=== PATIENT | male | born 1940 | race Caucasian/White ===

== ENCOUNTER 2016-08-19 23:05 | Inpatient (IN) | payer MEDICARE, BC ==
[~2016-08-19] VITALS: Ht 188 cm; Wt 111.0 kg
[~2016-08-19 23:05] MED LIST: AMLO10 PO; BACT400T PO; COBA1000 PO; COQ1200C; DULC5TAB PO; FERR325T PO; ISOS20TA PO; MILL5TAB PO; MULT1CHW70; SODI650T PO
[2016-08-19 23:11] VITALS: BP 197/96; PULSE 121; RESP 22; TEMP 99
--- NOTE | 2016-08-19 23:20 | PD ---
HPI Chief Complaint: Chest Pain Time Seen by Provider: 23:20 Travel History International Travel<30 days: No Contact w/Intl Traveler<30days: No Traveled to known affect area: No History of Present Illness HPI 76-year-old male came to the emergency room with history of fever, chills which were sudden onset this afternoon. Patient's rectal temperature in the ER was 102.5. He self catheterizes to empty his bladder and says that he's been on Keflex for UTI by his primary care. He's also been having some diarrhea due to the Keflex. Today he was working in the garden and when he came back he started having some shortness of breath. Patient is awake and answering questions appropriately. His is here with him who is giving additional history. [facility] Past Medical History Narrative Medical List of his past medical, surgical, social and family history is reviewed from the nursing note. 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, MITRAL VALVUE REGURGE) High Cholesterol: No Chest Pain: No Congestive Heart Failure: No COPD: Yes Diabetes: No Diminished Hearing: No Endocrine: No Genitourinary: Yes (self caths 4 QID) Hypertension: Yes Immune Disorder: No Musculoskeletal: Yes Neurologic: No Psychiatric: No Reproductive: No Respiratory: Yes (EMPHYSEMA, PULMONARY FIBROSIS,PULMONARY HTN) Immunizations Current: Yes Pneumonia: Yes Sleep Apnea: Yes Thyroid Disease: No Past Surgical History Abdominal Surgery: Yes (GALLBLADDER/ APPENDECTOMY) Appendectomy: Yes (2000) Cholecystectomy: Yes (2000) Endocrine Surgery: Yes (LYMPHNODE REMOVAL R/T CAT SCRATCH FEVER 1961) Genitourinary Surgery: Yes (VASECTOMY, TURP IN JANUARY 2013) Pacemaker: No Tonsillectomy: Yes Other Surgery: Yes (LYMPH NODES REMOVED-CAT SCRATCH FEVER) Social History Alcohol Use: Yes (OCC) Tobacco Use: No (QUIT 1995) Substance Use: No Allergies-Medications (Allergen,Severity, Reaction): Coded Allergies: Iodine (Verified Allergy, Severe, 08/24/16) SWELLING OF EYES AND FINGERS. Iohexol (OMNIPAQUE) (Verified Allergy, Unknown, 08/24/16) Comments List of his allergies reviewed from the nursing note. Reported Meds & Prescriptions Reported Meds & Active Scripts Active Reported Cranberry (Cranberry (Vaccinium Macrocarpon)) 500 Mg Cap 1 Tab PO DAILY Centrum Silver (Multiple Vitamins W/ Minerals) 1 Chw Chw 1 Tab PO DAILY Co Q 10 (Coenzyme Q10 (Ubidecarenone)) 10 Mg Cap 200 Mg PO DAILY Vitamin D (Cholecalciferol) 1,000 Unit Tab 1,000 Units PO DAILY Spironolactone 25 Mg Tab 25 Mg PO DAILY Sodium Bicarbonate 650 Mg Tab 1,300 Mg PO BIDPC Millipred (Prednisolone) 5 Mg Tab 30 Mg PO DAILY Isosorbide Mononitrate 20 Mg Tab 30 Mg PO DAILY Take 2 doses 7 hours apart. B-12 1000 (Cobalamine Combinations) 1,000-400 Mcg Subl 1 Tab PO DAILY Dulcolax DR (Bisacodyl) 5 Mg Tabdr 5 Mg PO DAILY PRN Norvasc (Amlodipine Besylate) 10 Mg Tab 10 Mg PO DAILY Narrative Medication List of his home medications reviewed from the nursing note. Review of Systems Except as stated in HPI: all other systems reviewed are Neg Physical Exam Narrative GENERAL: Awake, alert, moderate distress SKIN: Focused skin assessment warm/dry. HEAD: Atraumatic. Normocephalic. EYES: Pupils equal and round. No scleral icterus. No injection or drainage. ENT: No nasal bleeding or discharge. Mucous membranes pink and moist. NECK: Trachea midline. No JVD. CARDIOVASCULAR: Regular rate and rhythm. No murmur appreciated. RESPIRATORY: No accessory muscle use. Clear to auscultation. Breath sounds equal bilaterally. GASTROINTESTINAL: Abdomen soft, non-tender, nondistended. Hepatic and splenic margins not palpable. MUSCULOSKELETAL: No obvious deformities. No clubbing. No cyanosis. No edema. NEUROLOGICAL: Awake and alert. No obvious cranial nerve deficits. Motor grossly within normal limits. Normal speech. PSYCHIATRIC: Appropriate mood and affect; insight and judgment normal. Data Data Last Documented VS Orders Complete Blood Count With Diff (08/19/16 23:46) Comprehensive Metabolic Panel (08/19/16 23:46) Lactic Acid Sepsis Protocol (08/19/16 23:46) Urinalysis - C+S If Indicated (08/19/16 23:46) Blood Culture (08/19/16 23:46) Chest, Single Ap (08/19/16 23:46) Blood Glucose (08/19/16 23:46) Ecg Monitoring (08/19/16 23:46) Iv Access Insert/Monitor (08/19/16 23:46) Oximetry (08/19/16 23:46) Oxygen Administration (08/19/16 23:46) Vancomycin Inj (Vancomycin Inj) (08/19/16 23:46) Piperacil-Tazo 4.5 Gm Premix (Zosyn 4.5 (08/19/16 23:46) Sodium Chlor 0.9% 1000 Ml Inj (Ns 1000 M (08/19/16 23:46) Sodium Chlor 0.9% 1000 Ml Inj (Ns 1000 M (08/19/16 23:46) Sodium Chlor 0.9% 1000 Ml Inj (Ns 1000 M (08/19/16 23:46) Sodium Chlor 0.9% 1000 Ml Inj (Ns 1000 M (08/19/16 23:46) Acetaminophen (Tylenol) (08/20/16 00:00) Urine Culture (08/19/16 23:50) Admit Order (Ed Use Only) (08/20/16 00:49) Labs Laboratory Tests Test 08/19/16 08/19/16 23:45 23:50 Sodium Level 143 MEQ/L Potassium Level 3.7 MEQ/L Chloride Level 104 MEQ/L Carbon Dioxide Level 28.2 MEQ/L Anion Gap 11 MEQ/L Blood Urea Nitrogen 42 MG/DL Creatinine 1.77 MG/DL Estimat Glomerular Filtration 38 ML/MIN Rate Random Glucose 82 MG/DL Lactic Acid Level 1.4 mmol/L Calcium Level 9.3 MG/DL Total Bilirubin 0.9 MG/DL Aspartate Amino Transf 22 U/L (AST/SGOT) Alanine Aminotransferase 25 U/L (ALT/SGPT) Alkaline Phosphatase 48 U/L Total Protein 7.4 GM/DL Albumin 3.9 GM/DL White Blood Count 14.1 TH/MM3 Red Blood Count 4.55 MIL/MM3 Hemoglobin 13.2 GM/DL Hematocrit 38.8 % Mean Corpuscular Volume 85.4 FL Mean Corpuscular Hemoglobin 28.9 PG Mean Corpuscular Hemoglobin 33.9 % Concent Red Cell Distribution Width 15.4 % Platelet Count 108 TH/MM3 Mean Platelet Volume 10.6 FL Neutrophils (%) (Auto) 87.8 % Lymphocytes (%) (Auto) 6.1 % Monocytes (%) (Auto) 4.5 % Eosinophils (%) (Auto) 0.9 % Basophils (%) (Auto) 0.7 % Neutrophils # (Auto) 12.4 TH/MM3 Lymphocytes # (Auto) 0.9 TH/MM3 Monocytes # (Auto) 0.6 TH/MM3 Eosinophils # (Auto) 0.1 TH/MM3 Basophils # (Auto) 0.1 TH/MM3 CBC Comment AUTO DIFF Differential Total Cells 100 Counted Neutrophils % (Manual) 79 % Band Neutrophils % 5 % Lymphocytes % 5 % Monocytes % 8 % Neutrophils # (Manual) 12.3 TH/MM3 Metamyelocytes 3 % Differential Comment FINAL DIFF MANUAL Platelet Estimate LOW Platelet Morphology Comment NORMAL Urine Color LIGHT-YELLOW Urine Turbidity CLEAR Urine pH 5.5 Urine Specific [place] 1.014 Urine Protein TRACE mg/dL Urine Glucose (UA) NEG mg/dL Urine Ketones NEG mg/dL Urine Occult Blood TRACE Urine Nitrite NEG Urine Bilirubin NEG Urine Urobilinogen LESS THAN 2.0 MG/DL Urine Leukocyte Esterase SMALL Urine RBC 6 /hpf Urine WBC 14 /hpf Urine Squamous Epithelial <1 /hpf Cells Urine Bacteria RARE /hpf Urine Mucus FEW /lpf Microscopic Urinalysis Comment CATH-CULTURE IND MDM Medical Decision Making Medical Screen Exam Complete: Yes Emergency Medical Condition: Yes Medical Record Reviewed: Yes Interpretation(s) Twelve-lead EKG was reviewed by me. Normal sinus rhythm, normal axis, nonspecific ST-T wave changes, tachycardia. Heart rate of 114 bpm. Differential Diagnosis UTI, pneumonia, sepsis Narrative Course 12:40 AM patient was started on sepsis protocol along with fluid and broad- spectrum IV antibiotics. Test results of back and shows leukocytosis with left shift. UA is positive for infection. Patient will require admission. Awaiting for the hospitalist to call back. Critical Care Narrative Aggregate critical care time was 30 minutes. Time to perform other separately billable procedures was not included in the critical care time. My time did not include minutes spent treating any other patients simultaneously or on activities that did not directly contribute to the patient's treatment. The services I provided to this patient were to treat and/or prevent clinically significant deterioration that could result in: Sepsis, sepsis protocol I provided critical care services requiring my management, as noted below: Chart data review, documentation time, medication orders and management, vital sign assessments/reviewing monitor data, ordering and reviewing lab tests, ordering and interpreting/reviewing x-rays and diagnostic studies, care of the patient and discussion of the patient with the admitting physicians. Procedures EKG Prior to Arrival: No Sepsis Criteria SIRS Criteria (2 or more): Temp > 100.9 or < 96.8, Heart rate over 90, WBC > 21957, < 4000 or > 10% bands Sepsis Criteria (SIRS+source): Infect source susp/known Diagnosis Primary Impression: Sepsis Qualified Code: A41.9 - Sepsis, due to unspecified organism Additional Impressions: UTI (urinary tract infection) Qualified Code: N39.0 - Urinary tract infection without hematuria, site unspecified Renal insufficiency Failure of outpatient treatment Admitting Information Admitting Physician Requests: Admit Scripts Ciprofloxacin (Cipro)250 Mg Zel563 Mg PO BID #24 TAB Ref 0 Prov:Shira Jones 08/22/16 Zakia Irving MD August 19, 2016 23:20
[2016-08-19] MEDS ORDERED: VITA100064 PO (23:25)
[2016-08-19] MEDS ORDERED: CENTCHW3 PO (23:25)
[2016-08-19] MEDS ORDERED: SPIR25TA PO (23:25)
[2016-08-19] MEDS ORDERED: CO Q10CA PO (23:25)
[2016-08-19] MEDS ORDERED: CRAN500C2 PO (23:25)
[2016-08-19] MEDS ORDERED: CEPH-459 PO (23:25)
[2016-08-19 23:30] VITALS: TEMP 102.4
[2016-08-19] MEDS ORDERED: VANCOMYCIN INJ 1,000 MG in SODIUM CHLOR 0.9% 250 ML INJ 250 ML IV STA (23:46)
[2016-08-19] MEDS ORDERED: PIPERACIL-TAZO 4.5 GM PREMIX 100 ML IV STA (23:46)
[2016-08-19] MEDS ORDERED: SODIUM CHLOR 0.9% 1000 ML INJ 300 ML IV ONE (23:46)
[2016-08-19] MEDS ORDERED: SODIUM CHLOR 0.9% 1000 ML INJ 1,000 ML IV ONE ×3 (23:46)
[2016-08-20] VITALS (7 sets, daily range): BP systolic 118–205; BP diastolic 65–98; PULSE 74–117; RESP 18–20; TEMP 98–99.1; O2SAT 94–96
[2016-08-20] MEDS ORDERED: ACETAMINOPHEN 325 MG TAB PO ONE
[2016-08-20 00:15] LABS: BACTERIA, URINE RARE /hpf; BLOOD, URINE TRACE (NEG); GLUCOSE,URINE NEG (NEG); KETONE, URINE NEG (NEG); MUCUS URINE FEW /lpf (OCC); NITRITE,URINE NEG (NEG); PH, URINE 5.5 (5.0-8.5); SQUAMOUS EPITHELIAL CELL URINE <1 /hpf (0-5); URINE COLOR LIGHT-YELLOW (YELLW/STRAW)
[2016-08-20 00:21] LABS: ALT (GPT) 25 U/L (12-78); ANION GAP 11 MEQ/L (5-15); AST (GOT) 22 U/L (15-37); AUTOMATED NEUTROPHIL # 12.4 TH/MM3 (1.8-7.7); BASOPHIL # 0.1 TH/MM3 (0-0.2); BASOPHIL % 0.7 % (0.0-2.0); BICARBONATE 28.2 MEQ/L (21.0-32.0); BLOOD UREA NITROGEN 42 MG/DL (7-18); CHLORIDE 104 MEQ/L (98-107); EOSINOPHIL # 0.1 TH/MM3 (0-0.4); EOSINOPHIL % 0.9 % (0.0-4.0); GLOMERULAR FILTRATION RATE 38 ML/MIN (>89); HEMATOCRIT 38.8 % (39.0-51.0); LYMPH % 6.1 % (9.0-44.0); LYMPHOCYTE # 0.9 TH/MM3 (1.0-4.8); MEAN CELL VOLUME 85.4 FL (80.0-100.0); MEAN CORPUSCULAR HEMOGLOBIN 28.9 PG (27.0-34.0); MEAN CORPUSCULAR HGB CONC 33.9 % (32.0-36.0); MONO % 4.5 % (0.0-8.0); NEUT % 87.8 % (16.0-70.0); PLATELET COUNT 108 TH/MM3 (150-450); POTASSIUM 3.7 MEQ/L (3.5-5.1); RED BLOOD COUNT 4.55 MIL/MM3 (4.50-5.90); RED CELL DISTRIBUTION WIDTH 15.4 % (11.6-17.2); SODIUM (NA) 143 MEQ/L (136-145); WHITE BLOOD COUNT 14.1 TH/MM3 (4.0-11.0)
[2016-08-20 00:23] LABS: ALKALINE PHOSPHATASE 48 U/L (45-117); HEMO FLAGS AUTO DIFF; TOTAL BILIRUBIN ADULT 0.9 MG/DL (0.2-1.0)
[2016-08-20 00:33] LABS: COMMENT (UR) CATH-CULTURE IND; CULTURE IF INDICATED CATH CULTURE IND
--- NOTE | 2016-08-20 00:40 | RADRPT ---
EXAM DATE/TIME: 08/20/2016 00:25 [facility] COMPARISON: CHEST SINGLE AP, June 27, 2012, 11:34. INDICATIONS : Fever. MEDICAL HISTORY : Chronic obstructive pulmonary disease. Ventricular fibrosis CKD BPH SURGICAL HISTORY : Cholecystectomy. Appendectomy. TURP ENCOUNTER: Initial ACUITY: 1 day PAIN SCORE: 0/10 LOCATION: Bilateral chest FINDINGS: A single view of the chest demonstrates cardiomegaly. Left sided lung fibrotic changes similar to Jun. No new consolidation. Mild right basilar fibrosis as well. No pneumothorax. CONCLUSION: 1. Relatively stable appearance of basilar lung fibrotic changes since 2012. Cardiomegaly. No acute f indings. Monty Wang MD on August 20, 2016 at 0:34 Board Certified Radiologist. This report was verified electronically.
[2016-08-20] MEDS ORDERED: SODIUM CHLOR 0.9% 1000 ML INJ 1,000 ML IV SCH (00:49)
[2016-08-20 00:56] LABS: BANDS 5 % (0-6); METAMYELOCYTES 3 % (0-1); NEUTROPHIL # MANUAL DIFF 12.3 TH/MM3 (1.8-7.7); POLYS (SEG NEUTROPHILS) 79 % (16-70); SCAN/DIFF FINAL DIFF MANUAL; WBC DIFF SAMPLE 100
[2016-08-20 00:57] LABS: PLATELET ESTIMATE SMEAR LOW (NORMAL); PLATELET MORPHOLOGY NORMAL (NORMAL)
[2016-08-20] MEDS ORDERED: SODIUM CHLORIDE 0.9% FLUSH 10 ML FLUSH IV FLUSH PRN (01:00)
[2016-08-20] MEDS ORDERED: MORPHINE SULFATE 4 MG/ML INJ IV PRN (01:00)
[2016-08-20] MEDS ORDERED: SENNOSIDES 8.6 MG TAB PO PRN (01:00)
[2016-08-20] MEDS ORDERED: BISACODYL 10 MG SUPP RECTAL PRN (01:00)
[2016-08-20] MEDS ORDERED: ONDANSETRON HCL 4 MG/2 ML VIAL IVP PRN (01:00)
[2016-08-20] MEDS ORDERED: MAGNESIUM HYDROXIDE SUSP 30 ML CUP PO PRN (01:00)
[2016-08-20] MEDS ORDERED: Vancomycin Consult Pharmacy 1 EA OTHER SCH (01:00)
[2016-08-20] MEDS ORDERED: LACTULOSE SYRUP 20 GM/30 ML CUP PO PRN (01:00)
[2016-08-20] MEDS ORDERED: VANCOMYCIN 1,000 MG/NS 250 ML IV SCH ×2 (02:00)
--- NOTE | 2016-08-20 03:12 | HHI.HP ---
[facility] Physician Loc Vidal MD Admission Diagnosis sepsis, UTI, outpatient treatment failure Diagnoses: (1) Sepsis Diagnosis: Principal (2) UTI (urinary tract infection) Diagnosis: Principal (3) Failure of outpatient treatment Diagnosis: Principal (4) COPD (chronic obstructive pulmonary disease) Diagnosis: Principal (5) Renal insufficiency Diagnosis: Principal (6) Thrombocytopenia Diagnosis: Principal Travel History International Travel<30 Days: No Contact w/Intl Traveler <30 Da: No Traveled to Known Affected Are: No History of Present Illness This is a 76-year-old male with a PMH of HTN, COPD, Pulmonary Fibrosis on Steroid Taper, CKD and Recurrent UTI who presented to the ER w/ complaints of fever, chills and generalized weakness starting earlier tonight. Recently diagnosed w/ UTI and started on Keflex PO 2 days ago, reports compliance w/ antibiotic regimen. Today, had acute onset of fever, chills. On arrival, BP 197/96, HR 121, O2 sat 95% on RA, Temp 102.4 rectal. WBC 14.1. Platelets 108, previously 85 on 01/06/16. Creatinine 1.77, previously 1.68 on 01/04/16. UA positive for UTI. CXR was stable fibrosis, no acute changes. S/p Blood/Urine Cultures, Vanc/Zosyn in ER. Review of Systems Except as stated in HPI: all other systems reviewed are Neg ROS: 14 point review of systems otherwise negative. Past Family Social History Past Medical History PMH: HTN, COPD, Pulmonary Fibrosis on Steroid Taper, CKD and Recurrent UTI Past Surgical History PAST SURGICAL HISTORY: Cholecystectomy, Appendectomy, Vasectomy, TURP, Tonsillectomy Allergies: Coded Allergies: Iodine (Verified Allergy, Severe, 02/24/16) SWELLING OF EYES AND FINGERS. Iohexol (OMNIPAQUE) (Verified Allergy, Unknown, 02/24/16) Family History PAST FAMILY HISTORY: Reviewed. No h/o DM or CAD Social History PAST SOCIAL HISTORY: Occasional alcohol. Negative for tobacco or drugs. Physical Exam Vital Signs Vital Signs Date Time Temp Pulse Resp B/P Pulse Ox O2 Delivery O2 Flow Rate FiO2 08/20/16 01:32 104 20 145/72 96 Room Air 08/19/16 23:30 102.4 08/19/16 23:15 95 Room Air 08/19/16 23:11 99.0 121 22 197/96 Physical Exam PE: GENERAL: Pleasant elderly male in no acute distress. HEENT: PERRLA, EOMI. No scleral icterus or conjunctival pallor. No lid lag or facial droop. CARDIOVASCULAR: Regular rate and rhythm. No obvious murmurs to auscultation. No chest tenderness to palpation. RESPIRATORY: No obvious rhonchi or wheezing. Clear to auscultation. Breath sounds equal bilaterally. GASTROINTESTINAL: Abdomen soft, non-tender, nondistended. BS normal. MUSCULOSKELETAL: Extremities without clubbing, cyanosis, or edema. No obvious deformities. NEUROLOGICAL: Awake, alert and oriented x4. No focal neurologic deficits. Moving both upper and lower extremities spontaneously. Laboratory Laboratory Tests Test 08/19/16 08/19/16 23:45 23:50 White Blood Count 14.1 Red Blood Count 4.55 Hemoglobin 13.2 Hematocrit 38.8 Mean Corpuscular Volume 85.4 Mean Corpuscular Hemoglobin 28.9 Mean Corpuscular Hemoglobin 33.9 Concent Red Cell Distribution Width 15.4 Platelet Count 108 Mean Platelet Volume 10.6 Neutrophils (%) (Auto) 87.8 Lymphocytes (%) (Auto) 6.1 Monocytes (%) (Auto) 4.5 Eosinophils (%) (Auto) 0.9 Basophils (%) (Auto) 0.7 Neutrophils # (Auto) 12.4 Lymphocytes # (Auto) 0.9 Monocytes # (Auto) 0.6 Eosinophils # (Auto) 0.1 Basophils # (Auto) 0.1 CBC Comment AUTO DIFF Differential Total Cells 100 Counted Neutrophils % (Manual) 79 Band Neutrophils % 5 Lymphocytes % 5 Monocytes % 8 Neutrophils # (Manual) 12.3 Metamyelocytes 3 Differential Comment FINAL DIFF MANUAL Platelet Estimate LOW Platelet Morphology Comment NORMAL Sodium Level 143 Potassium Level 3.7 Chloride Level 104 Carbon Dioxide Level 28.2 Anion Gap 11 Blood Urea Nitrogen 42 Creatinine 1.77 Estimat Glomerular Filtration 38 Rate Random Glucose 82 Lactic Acid Level 1.4 Calcium Level 9.3 Total Bilirubin 0.9 Aspartate Amino Transf 22 (AST/SGOT) Alanine Aminotransferase 25 (ALT/SGPT) Alkaline Phosphatase 48 Total Protein 7.4 Albumin 3.9 Urine Color LIGHT-YELLOW Urine Turbidity CLEAR Urine pH 5.5 Urine Specific [place] 1.014 Urine Protein TRACE Urine Glucose (UA) NEG Urine Ketones NEG Urine Occult Blood TRACE Urine Nitrite NEG Urine Bilirubin NEG Urine Urobilinogen LESS THAN 2.0 Urine Leukocyte Esterase SMALL Urine RBC 6 Urine WBC 14 Urine Squamous Epithelial <1 Cells Urine Bacteria RARE Urine Mucus FEW Microscopic Urinalysis Comment CATH-CULTURE IND Date/Time Procedure Status Source Growth 08/19/16 23:50 Urine Culture Received Urine Catheterized Urine Pending 08/19/16 23:50 Aerobic Blood Culture Received Blood Peripheral Pending 08/19/16 23:50 Anaerobic Blood Culture Received Blood Peripheral Pending Result Diagram: 08/19/16 2345 08/19/165 Assessment and Plan Problem List: (1) Sepsis ICD Code: A41.9 Status: Acute (2) UTI (urinary tract infection) ICD Code: N39.0 Status: Acute (3) Failure of outpatient treatment ICD Code: Z78.9 Status: Acute (4) Renal insufficiency ICD Code: N28.9 Status: Acute (5) COPD (chronic obstructive pulmonary disease) ICD Code: J44.9 Status: Acute (6) Thrombocytopenia ICD Code: D69.6 Status: Acute Assessment and Plan A/P: 1. Sepsis: Temp 102.4, HR 120's, WBC 14, Source-UTI. S/p Blood/Urine Cultures , Vanc/Zosyn in ER, will follow up cultures, continue w/ IV Abx, IVF for hydration. 2. UTI: U/a w/ UTI, recently diagnosed w/ UTI as outpatient, on Keflex x2 days by PCP, failed outpatient therapy. Continue w/ IV Abx as above, follow up cultures. 3. Renal Insufficiency: Acute on Chronic. Creatinine 1.77, previously 1.68 on 01/06/16. IVF for hydration, repeat labs in am. Caution w/ home diuretics. 4. COPD: Chronic Respiratory Failure and Pulmonary Fibrosis, currently on steroid taper. Stable. Will resume home Prednisone therapy. 5. Thrombocytopenia: Chronic. Platelets 108, previously 85 on 01/06/16. No active bleeding at this time. Will monitor. Repeat labs in am. 6. DVT Prophylaxis: SCD/Teds. 7. Social work for d/c planning as needed. 8. Case discussed w/ ER physician at length Physician Certification 2 Midnight Certification Type: Admission for Inpatient Services Order for Inpatient Services The services are ordered in accordance with Medicare regulations or non- Medicare payer requirements, as applicable. In the case of services not specified as inpatient-only, they are appropriately provided as inpatient services in accordance with the 2-midnight benchmark. Estimated LOS (days): 2 days is the estimated time the patient will need to remain in the hospital, assuming treatment plan goals are met and no additional complications. Post-Hospital Plan: Not yet determined Problem Qualifiers (1) Sepsis: Qualified Code: A41.9 - Sepsis, due to unspecified organism (2) UTI (urinary tract infection): Qualified Code: N39.0 - Urinary tract infection without hematuria, site unspecified Beatriz Funes MD August 20, 2016 03:12
[2016-08-20] MEDS: ISOSORBIDE MONONITRATE 20 MG TAB PO SCH (06:40)
[2016-08-20] MEDS: SPIRONOLACTONE 25 MG TAB PO SCH (08:23)
[2016-08-20] MEDS: MULTIVITAMINS/MINERALS THERAPEUTIC TAB PO SCH (08:23)
[2016-08-20] MEDS: DOCUSATE SODIUM 50 MG/SENNA 8.6 MG TAB PO SCH ×2 (08:23→21:00)
[2016-08-20] MEDS: prednisoLONE 15 MG ODT TAB PO SCH (08:23)
[2016-08-20] MEDS: SODIUM BICARBONATE 650 MG TAB PO SCH ×2 (08:23→18:09)
[2016-08-20] MEDS: ACETAMINOPHEN 325 MG TAB PO PRN ×2 (08:23→14:17)
[2016-08-20] MEDS: SODIUM CHLORIDE 0.9% FLUSH 10 ML FLUSH IV FLUSH SCH ×2 (08:24→21:00)
--- NOTE | 2016-08-20 12:09 | HHI.PR ---
Subjective Remarks MAXIMUM TEMPERATURE on admission 102.4. Patient remains tachycardic to 117. Hypertensive to 205/98. Patient states he feels well this morning. He is urinating in his usual fashion (voiding and self catheterizing). Denies hematuria or pain with urination. Denies nausea/vomiting/diarrhea. Denies shortness of breath. Objective Vitals Vital Signs Date Time Temp Pulse Resp B/P Pulse Ox O2 Delivery O2 Flow Rate FiO2 08/20/16 08:00 99.1 101 20 205/98 94 08/20/16 04:00 117 08/20/16 03:42 Room Air 08/20/16 03:30 98.0 92 20 144/75 95 08/20/16 01:32 104 20 145/72 96 Room Air 08/19/16 23:30 102.4 08/19/16 23:15 95 Room Air 08/19/16 23:11 99.0 121 22 197/96 Result Diagram: 08/19/16 2345 08/19/16 2345 Objective Remarks GENERAL: Pleasant elderly male in no acute distress. HEENT: PERRLA, EOMI. No scleral icterus or conjunctival pallor. No lid lag or facial droop. CARDIOVASCULAR: Regular rate and rhythm. No obvious murmurs to auscultation. No chest tenderness to palpation. RESPIRATORY: No obvious rhonchi or wheezing. Clear to auscultation. Breath sounds equal bilaterally. GASTROINTESTINAL: Abdomen soft, non-tender, nondistended. BS normal. MUSCULOSKELETAL: Extremities without clubbing, cyanosis, or edema. No obvious deformities. NEUROLOGICAL: Awake, alert and oriented x4. No focal neurologic deficits. Moving both upper and lower extremities spontaneously. A/P Problem List: (1) Sepsis ICD Code: A41.9 Status: Acute (2) UTI (urinary tract infection) ICD Code: N39.0 Status: Acute (3) Failure of outpatient treatment ICD Code: Z78.9 Status: Acute (4) Renal insufficiency ICD Code: N28.9 Status: Acute (5) COPD (chronic obstructive pulmonary disease) ICD Code: J44.9 Status: Acute (6) Thrombocytopenia ICD Code: D69.6 Status: Acute Assessment and Plan 76-year-old male with past medical history significant for stage IV chronic kidney disease, hypertension, urinary retention, COPD and pulmonary fibrosis presents with sepsis from UTI. Patient took 4 days of Keflex and failed outpatient therapy. On admission he was febrile to 102.4 and had a leukocytosis of 14.1. 1. Sepsis Likely secondary to urinary tract infection Urine culture pending Continue cefepime and vancomycin as patient failed Keflex 4 days Patient tolerating by mouth, DC IV fluids Blood cultures no growth 1 day Follow cultures, adjust antibiotics 2. UTI Likely secondary to patient's self catheterizing at home Failed outpatient therapy as above Antibiotics as above 3. Stage IV chronic kidney disease Creatinine 1.77, previously 1.68 on 01/06/16 Repeat labs in the a.m. 4. COPD and pulmonary fibrosis Continue home prednisone therapy 5. Thrombocytopenia Platelets 108, previously 85 on 01/06/16. No acute bleeding at this time. Continue to monitor. 6. DVT prophylaxis SCDs/teds Pharmacologic anticoagulation not indicated given thrombocytopenia 7. Discharge planning Pending urine sensitivities and continued negative blood cultures Problem Qualifiers (1) Sepsis: Qualified Code: A41.9 - Sepsis, due to unspecified organism (2) UTI (urinary tract infection): Qualified Code: N39.0 - Urinary tract infection without hematuria, site unspecified Ramona Cervantes MD R3 August 20, 2016 12:09
--- NOTE | 2016-08-20 14:48 | EKG ---
Date Performed: 08/19/2016 Time Performed: 23:22:07 PTAGE: 76 years EKG: SINUS TACHYCARDIA MINIMAL VOLTAGE CRITERIA FOR LVH, CONSIDER NORMAL VARIANT ABNORMAL RHYTHM ECG PREVIOUS TRACING 01/05/2016 17.43.59 Compared to previous tracing, QRS voltage is slightly lar gladis in this tracing, otherwise no significant change. DOCTOR: Michael Randolph Interpretating Date/Time 08/20/2016 14:47:11
[2016-08-20] MEDS: VANCOMYCIN INJ 1,600 MG in SODIUM CHLORID 0.9% 500 ML INJ 500 ML IV SCH (21:15)
--- NOTE | 2016-08-20 23:03 | RADRPT ---
EXAM DATE/TIME: 08/20/2016 22:40 [facility] COMPARISON: No previous studies available for comparison. INDICATIONS : Distention. MEDICAL HISTORY : Chronic obstructive pulmonary disease. Ventricular fibrosis. SURGICAL HISTORY : Cholecystectomy. Appendectomy. ENCOUNTER: Subsequent ACUITY: 1 week PAIN SCORE: 0/10 LOCATION: Bilateral abdomen FINDINGS: Supine view of the abdomen was performed. The abdominal bowel gas pattern is normal. No abnormal ma sses, calcifications, or organomegaly is seen. Degenerative changes are noted within the lumbar spine . CONCLUSION: 1. No evidence of bowel obstruction or ileus. 2. Degenerative changes within the lumbar spine. Vlad Dozier MD on August 20, 2016 at 23:00 Board Certified Radiologist. This report was verified electronically.
[2016-08-20] MEDS: SIMETHICONE 125 MG CHEWABLE TAB PO PRN (23:10)
[2016-08-20] MEDS: ACETAMINOPHEN/HYDROcodone 325 MG/5 MG TAB PO PRN (23:13)
[2016-08-21] VITALS (9 sets, daily range): BP systolic 134–166; BP diastolic 80–90; PULSE 55–82; RESP 16–21; TEMP 97.3–97.9; O2SAT 92–97
[2016-08-21] MEDS ORDERED: ENALAPRILAT 1.25 MG/ML VIAL IV PUSH PRN (05:15)
[2016-08-21] MEDS ORDERED: CEFEPIME INJ 1,000 MG in SODIUM CHLORIDE 0.9% INJ 100 ML IV SCH (06:00)
[2016-08-21] MEDS: ISOSORBIDE MONONITRATE 20 MG TAB PO SCH (06:20)
[2016-08-21 08:17] LABS: AUTOMATED NEUTROPHIL # 3.4 TH/MM3 (1.8-7.7); BASOPHIL % 0.1 % (0.0-2.0); EOSINOPHIL # 0.1 TH/MM3 (0-0.4); EOSINOPHIL % 1.1 % (0.0-4.0); LYMPH % 16.2 % (9.0-44.0); MEAN CELL VOLUME 85.6 FL (80.0-100.0); MEAN CORPUSCULAR HGB CONC 32.8 % (32.0-36.0); MONO % 27.3 % (0.0-8.0); NEUT % 55.3 % (16.0-70.0); PLATELET COUNT 64 TH/MM3 (150-450); RED BLOOD COUNT 4.09 MIL/MM3 (4.50-5.90); RED CELL DISTRIBUTION WIDTH 15.3 % (11.6-17.2); WHITE BLOOD COUNT 6.2 TH/MM3 (4.0-11.0)
[2016-08-21 08:22] LABS: HEMO FLAGS AUTO DIFF
[2016-08-21 08:37] LABS: ALKALINE PHOSPHATASE 36 U/L (45-117); ALT (GPT) 23 U/L (12-78); ANION GAP 8 MEQ/L (5-15); AST (GOT) 17 U/L (15-37); BICARBONATE 23.9 MEQ/L (21.0-32.0); BLOOD UREA NITROGEN 32 MG/DL (7-18); CHLORIDE 107 MEQ/L (98-107); GLOMERULAR FILTRATION RATE 46 ML/MIN (>89); POTASSIUM 3.5 MEQ/L (3.5-5.1); SODIUM (NA) 139 MEQ/L (136-145); TOTAL BILIRUBIN ADULT 0.8 MG/DL (0.2-1.0)
[2016-08-21] MEDS: DOCUSATE SODIUM 50 MG/SENNA 8.6 MG TAB PO SCH ×2 (09:00→20:13)
[2016-08-21] MEDS: SODIUM BICARBONATE 650 MG TAB PO SCH ×2 (09:25→17:15)
[2016-08-21] MEDS: SPIRONOLACTONE 25 MG TAB PO SCH (09:25)
[2016-08-21] MEDS: prednisoLONE 15 MG ODT TAB PO SCH (09:25)
[2016-08-21] MEDS: SIMETHICONE 125 MG CHEWABLE TAB PO PRN (09:25)
[2016-08-21] MEDS: MULTIVITAMINS/MINERALS THERAPEUTIC TAB PO SCH (09:25)
[2016-08-21] MEDS: SODIUM CHLORIDE 0.9% FLUSH 10 ML FLUSH IV FLUSH SCH ×2 (09:30→20:13)
[2016-08-21 09:48] LABS: BANDS 12 % (0-6); METAMYELOCYTES 1 % (0-1); MYELOCYTES 10 % (0-0); NEUTROPHIL # MANUAL DIFF 3.9 TH/MM3 (1.8-7.7); POLYS (SEG NEUTROPHILS) 40 % (16-70); WBC DIFF SAMPLE 100
[2016-08-21 09:49] LABS: PLATELET ESTIMATE SMEAR LOW (NORMAL); PLATELET MORPHOLOGY NORMAL (NORMAL); SCAN/DIFF FINAL DIFF MANUAL
--- NOTE | 2016-08-21 11:39 | HHI.PR ---
Subjective Remarks Follow up UTI. Patient states he has been urinating, no straight cath as of yet. He does straight cath at home, and is bringing supplies. He denies any dysuria, fever or chills. Objective Vitals Vital Signs Date Time Temp Pulse Resp B/P Pulse Ox O2 Delivery O2 Flow Rate FiO2 08/21/16 08:00 97.8 80 16 164/82 93 08/21/16 06:28 140/80 08/21/16 04:52 97.9 55 18 166/86 93 08/21/16 04:00 97.9 55 18 166/86 93 08/21/16 00:00 97.8 71 18 150/80 92 08/20/16 20:00 74 08/20/16 20:00 98.3 78 18 145/72 94 08/20/16 19:00 Room Air 08/20/16 16:00 98.8 85 20 147/70 94 08/20/16 12:00 99.0 81 20 118/65 94 I/O 08/20/16 08/20/16 08/20/16 08/21/16 08/21/16 08/21/16 07:00 15:00 23:00 07:00 15:00 23:00 Intake Total 960 ml 240 ml 240 ml Output Total 200 ml 300 ml Balance 960 ml 40 ml -60 ml Intake Oral 960 ml 240 ml 240 ml Output Urine Total 200 ml 300 ml # Voids 2 12 # Bowel Movements 0 1 0 Result Diagram: 08/21/1672308/21/16 0724 Objective Remarks GENERAL: Pleasant elderly male in no acute distress. HEENT: PERRLA, EOMI. No scleral icterus or conjunctival pallor. CARDIOVASCULAR: Regular rate and rhythm. Mitral murmer with radiation to axilla. RESPIRATORY: No obvious rhonchi or wheezing. Clear to auscultation. Breath sounds equal bilaterally. GASTROINTESTINAL: Abdomen soft, non-tender, nondistended. BS normal. MUSCULOSKELETAL: Extremities without clubbing, cyanosis, or edema. No obvious deformities. NEUROLOGICAL: Awake, alert and oriented x4. No focal neurologic deficits. Moving both upper and lower extremities spontaneously. Medications and IVs Current Medications Medications (Trade) Dose Ordered Sig/Lida Route Start Time Stop Time Status Last Admin (Vancomycin Consult Pharmacy) 0 ml @ 0 mls/hr UNSCH OTHER 08/20/16 01:00 (NS Flush) 2 ml UNSCH PRN IV FLUSH 08/20/16 01:00 (NS Flush) 2 ml BID IV FLUSH 08/20/16 09:00 08/21/16 09:30 (Zofran Inj) 4 mg Q6H PRN IVP 08/20/16 01:00 (Tylenol) 650 mg Q6H PRN PO 08/20/16 01:00 08/20/16 14:17 ([place] 5-325 Mg) 1 tab Q4H PRN PO 08/20/16 01:00 08/20/16 23:13 (Morphine Inj) 2 mg Q3H PRN IV 08/20/16 01:00 (Veronica-Colace) 1 tab BID PO 08/20/16 09:00 08/20/16 08:23 (Milk Of Magnesia Liq) 30 ml Q12H PRN PO 08/20/16 01:00 (Senokot) 17.2 mg Q12H PRN PO 08/20/16 01:00 (Dulcolax Supp) 10 mg DAILY PRN RECTAL 08/20/16 01:00 (Lactulose Liq) 30 ml DAILY PRN PO 08/20/16 01:00 (Norvasc) 10 mg DAILY PO 08/20/16 09:00 08/21/16 09:25 (Ismo) 30 mg DAILY@07 PO 08/20/16 07:00 08/21/16 06:20 (Sodium Bicarbonate) 1,300 mg BIDPC PO 08/20/16 09:00 08/21/16 09:25 (Aldactone) 25 mg DAILY PO 08/20/16 09:00 08/21/16 09:25 (Theragran M Tab) 1 tab DAILY PO 08/20/16 09:00 08/21/16 09:25 Prednisolone 30 mg 30 mg DAILY PO 08/20/16 09:00 08/21/16 09:25 (Vancomycin Inj/ NS 500 ml Inj) 516 ml @ 250 mls/hr Q24H IV 08/20/16 21:00 08/20/16 21:15 Miscellaneous Information SPECIFIC LAB TO BE DRAWN:VANCOMY... ONCE ONCE .XX 08/22/16 20:45 08/22/16 20:46 (Phazyme Chew) 125 mg Q8HR PRN PO 08/20/16 22:45 08/21/16 09:25 Enalaprilat 1.25 mg 1.25 mg Q6H PRN IV PUSH 08/21/16 05:15 (Maxipime Inj/NS Inj) 100 ml @ 200 mls/hr Q12H IV 08/21/16 18:00 A/P Problem List: (1) Sepsis ICD Code: A41.9 Status: Acute (2) UTI (urinary tract infection) ICD Code: N39.0 Status: Acute (3) Failure of outpatient treatment ICD Code: Z78.9 Status: Acute (4) Renal insufficiency ICD Code: N28.9 Status: Acute (5) COPD (chronic obstructive pulmonary disease) ICD Code: J44.9 Status: Acute (6) Thrombocytopenia ICD Code: D69.6 Status: Acute Assessment and Plan 76-year-old male with past medical history significant for stage IV chronic kidney disease, hypertension, urinary retention, COPD and pulmonary fibrosis presents with sepsis from UTI. Patient took 4 days of Keflex and failed outpatient therapy. On admission he was febrile to 102.4 and had a leukocytosis of 14.1. Sepsis, Likely secondary to urinary tract infection with Ecoli Urine culture growing Gram negative rods Continue cefepime and vancomycin as patient failed Keflex 4 days Blood cultures no growth 2 days Follow cultures, adjust antibiotics UTI, r/t Ecoli, Likely secondary to patient's self catheterizing at home Failed outpatient therapy as above Antibiotics as above -Record post residual void with straight cath Acute kidney injury on chronic Stage IV kidney disease Creatinine 1.77, previously 1.68 on 01/06/16 Improving creatine 1.49, cont to trend COPD and pulmonary fibrosis Continue home prednisone therapy Thrombocytopenia, acute on chronic, likely dilutional Platelets 108, previously 85 on 01/06/16. 08/21 decreased to 64, pt complains of blood not clotting fast enough. Recheck tonight and in AM, if continues to drop will consult hematology DVT prophylaxis SCDs/teds Pharmacologic anticoagulation not indicated given thrombocytopenia Discussed with Dr. Mai Attending Statement The exam, history, and the medical decision-making described in the above note were completed with the assistance of the mid-level provider. I reviewed and agree with the findings presented. I attest that I had a [id number] encounter with the patient on the same day, and personally performed and documented my assessment and findings in the medical record.patient seen and examined with APRYL. Patient straight catheters at home. Continue straight catheters here to avoid infection risk of indwelling catheter. Continue antibiotics to treat UTI and await sensitivities. Problem Qualifiers (1) Sepsis: Qualified Code: A41.9 - Sepsis, due to unspecified organism (2) UTI (urinary tract infection): Qualified Code: N39.0 - Urinary tract infection without hematuria, site unspecified Shira Jones August 21, 2016 11:39 Nabor Mai MD Aug 24, 2016 08:01
[2016-08-21] MEDS: CEFEPIME INJ 1,000 MG in SODIUM CHLORIDE 0.9% INJ 100 ML IV SCH (17:15)
[2016-08-21] MEDS: VANCOMYCIN INJ 1,600 MG in SODIUM CHLORID 0.9% 500 ML INJ 500 ML IV SCH (20:13)
[2016-08-21] MEDS: ACETAMINOPHEN/HYDROcodone 325 MG/5 MG TAB PO PRN (23:34)
[2016-08-22] VITALS: BP 162/80; PULSE 65; RESP 20; TEMP 97.9; O2SAT 95
[2016-08-22 04:00] VITALS: BP 175/84; PULSE 76; RESP 19; TEMP 97.9; O2SAT 96
[2016-08-22] MEDS: ISOSORBIDE MONONITRATE 20 MG TAB PO SCH (06:35)
[2016-08-22] MEDS: ACETAMINOPHEN 325 MG TAB PO PRN (06:35)
[2016-08-22] MEDS: CEFEPIME INJ 1,000 MG in SODIUM CHLORIDE 0.9% INJ 100 ML IV SCH (06:35)
[2016-08-22 07:34] LABS: AUTOMATED NEUTROPHIL # 4.4 TH/MM3 (1.8-7.7); BASOPHIL % 0.3 % (0.0-2.0); EOSINOPHIL # 0.1 TH/MM3 (0-0.4); EOSINOPHIL % 1.3 % (0.0-4.0); HEMATOCRIT 36.1 % (39.0-51.0); LYMPH % 18.4 % (9.0-44.0); LYMPHOCYTE # 1.3 TH/MM3 (1.0-4.8); MEAN CELL VOLUME 86.2 FL (80.0-100.0); MEAN CORPUSCULAR HEMOGLOBIN 27.9 PG (27.0-34.0); MEAN CORPUSCULAR HGB CONC 32.4 % (32.0-36.0); MONO % 15.6 % (0.0-8.0); NEUT % 64.4 % (16.0-70.0); PLATELET COUNT 59 TH/MM3 (150-450); RED BLOOD COUNT 4.18 MIL/MM3 (4.50-5.90); RED CELL DISTRIBUTION WIDTH 15.6 % (11.6-17.2); WHITE BLOOD COUNT 6.8 TH/MM3 (4.0-11.0)
[2016-08-22 07:50] LABS: HEMO FLAGS AUTO DIFF
[2016-08-22 07:59] LABS: BICARBONATE 25.5 MEQ/L (21.0-32.0); POTASSIUM 3.7 MEQ/L (3.5-5.1)
[2016-08-22 08:00] VITALS: BP 150/73; PULSE 66; RESP 18; TEMP 97.5; O2SAT 94
[2016-08-22 08:11] VITALS: PULSE 56
[2016-08-22] MEDS: MULTIVITAMINS/MINERALS THERAPEUTIC TAB PO SCH (08:32)
[2016-08-22] MEDS: SODIUM CHLORIDE 0.9% FLUSH 10 ML FLUSH IV FLUSH SCH (08:32)
[2016-08-22] MEDS: prednisoLONE 15 MG ODT TAB PO SCH (08:32)
[2016-08-22] MEDS: SPIRONOLACTONE 25 MG TAB PO SCH (08:32)
[2016-08-22] MEDS: SODIUM BICARBONATE 650 MG TAB PO SCH (08:32)
[2016-08-22] MEDS: DOCUSATE SODIUM 50 MG/SENNA 8.6 MG TAB PO SCH (08:33)
[2016-08-22 10:08] LABS: BANDS 18 % (0-6); EOSINOPHILS 1 % (0-4); METAMYELOCYTES 4 % (0-1); NEUTROPHIL # MANUAL DIFF 4.1 TH/MM3 (1.8-7.7); PLATELET ESTIMATE SMEAR LOW (NORMAL); PLATELET MORPHOLOGY NORMAL (NORMAL); POLYS (SEG NEUTROPHILS) 38 % (16-70); SCAN/DIFF FINAL DIFF MANUAL; WBC DIFF SAMPLE 100
[2016-08-22 12:00] VITALS: BP 132/72; PULSE 71; RESP 20; TEMP 97.3; O2SAT 95
[2016-08-22] MEDS ORDERED: CIPR250T52 PO ×3 (12:34→12:49)
--- NOTE | 2016-08-22 12:35 | HHI.DCPOC ---
Discharge Care Plan Diagnosis: (1) Thrombocytopenia (2) UTI (urinary tract infection) (3) Sepsis (4) Renal insufficiency Goals to Promote Your Health * To prevent worsening of your condition and complications * To maintain your health at the optimal level Directions to Meet Your Goals Take your medications as prescribed Follow your dietary instruction Follow activity as directed Keep your appointments as scheduled Take your immunizations and boosters as scheduled If your symptoms worsen call your PCP, if no PCP go to Urgent Care Center or Emergency Room Smoking is Dangerous to Your Health. Avoid second hand smoke Call the 24-hour hour crisis hotline for domestic abuse at Shira Jones August 22, 2016 12:35
--- NOTE | 2016-08-22 12:57 | HHI.PR ---
Subjective Remarks Follow up UTI. Patient seen and examined. Denies any pain, dysuria, of sob. States he is straight cathing self with no issue. Patient states he follows with Dr. Owen outpatient for platelet count, chronic thrombocytopenia. Objective Vitals Vital Signs Date Time Temp Pulse Resp B/P Pulse Ox O2 Delivery O2 Flow Rate FiO2 08/22/16 12:00 97.3 71 20 132/72 95 08/22/16 08:11 Room Air 08/22/16 08:11 56 08/22/16 08:00 97.5 66 18 150/73 94 08/22/16 04:00 97.9 76 19 175/84 96 08/22/16 00:00 97.9 65 20 162/80 95 08/21/16 20:22 Room Air 08/21/16 20:00 97.5 82 21 134/85 96 08/21/16 16:00 Room Air 08/21/16 16:00 97.3 72 16 149/90 97 I/O 08/21/16 08/21/16 08/21/16 08/22/16 08/22/16 08/22/16 07:00 15:00 23:00 07:00 15:00 23:00 Intake Total 240 ml 482 ml 340 ml Output Total 300 ml Balance -60 ml 482 ml 340 ml Intake Oral 240 ml 480 ml 340 ml IV Total 2 ml Output Urine Total 300 ml # Voids 3 4 # Bowel Movements 0 0 2 Result Diagram: 08/22/16 0600 08/22/16 0600 Objective Remarks GENERAL: Pleasant elderly male in no acute distress. HEENT: PERRLA, EOMI. No scleral icterus or conjunctival pallor. CARDIOVASCULAR: Regular rate and rhythm. Mitral murmer with radiation to axilla. RESPIRATORY: No obvious rhonchi or wheezing. Clear to auscultation. Breath sounds equal bilaterally. GASTROINTESTINAL: Abdomen soft, non-tender, nondistended. BS normal. MUSCULOSKELETAL: Extremities without clubbing, cyanosis, or edema. No obvious deformities. NEUROLOGICAL: Awake, alert and oriented x4. No focal neurologic deficits. Moving both upper and lower extremities spontaneously. Urinary Catheter: No Vascular Central Line Catheter: No A/P Problem List: (1) Sepsis ICD Code: A41.9 Status: Acute (2) UTI (urinary tract infection) ICD Code: N39.0 Status: Acute (3) Failure of outpatient treatment ICD Code: Z78.9 Status: Acute (4) Renal insufficiency ICD Code: N28.9 Status: Acute (5) COPD (chronic obstructive pulmonary disease) ICD Code: J44.9 Status: Acute (6) Thrombocytopenia ICD Code: D69.6 Status: Acute Assessment and Plan 76-year-old male with past medical history significant for stage IV chronic kidney disease, hypertension, urinary retention, COPD and pulmonary fibrosis presents with sepsis from UTI. Patient took 4 days of Keflex and failed outpatient therapy. On admission he was febrile to 102.4 and had a leukocytosis of 14.1. Sepsis, Likely secondary to urinary tract infection with Ecoli, Resolved Urine culture growing Gram negative rods D/C cefepime and vancomycin as patient failed Keflex 4 days, Discharged with Cipro 500mg BID for 12 more days Blood cultures no growth 3 days UTI, r/t Ecoli, Likely secondary to patient's self catheterizing at home Failed outpatient therapy as above Antibiotics as above Acute kidney injury on chronic Stage IV kidney disease, resolved Creatinine 1.77, previously 1.68 on 01/06/16 Improving creatine 1.49, cont to trend COPD and pulmonary fibrosis Continue home prednisone therapy Thrombocytopenia, acute on chronic, likely dilutional Platelets 108, previously 85 on 01/06/16. 08/21 decreased to 64, 08/22 remained stable. Patient follows with dr. owen outpatient DVT prophylaxis SCDs/teds Pharmacologic anticoagulation not indicated given thrombocytopenia Discharge patient to home Condition on discharge: Stable Heart Health Diet as tolerated Ad Layla activity Rx written: Cipro 500mg BID 12 days Follow-up with primary care physician in 2-3 days, follow up with Dr. Owen in 2- 3 days CBC with diff in 2 days Discussed with patient regarding medications, follow up and lab in 2 days, patient verbalized understanding. CBC results will be sent to Dr. Owen. Patient is stable for discharge. Problem Qualifiers (1) Sepsis: Qualified Code: A41.9 - Sepsis, due to unspecified organism (2) UTI (urinary tract infection): Qualified Code: N39.0 - Urinary tract infection without hematuria, site unspecified Shira Jones August 22, 2016 12:57
[2016-08-22] MEDS ORDERED: PHARMACY ORDERED LAB ONE (20:45)
--- NOTE | 2016-08-23 14:06 | HHI.FF ---
Face to Face Verification Diagnosis: (1) UTI (urinary tract infection) (2) Sepsis (3) Renal insufficiency (4) Thrombocytopenia Home Health Nursing Order: Medical education Signs/symptoms of disease process Medication education-adverse effect Nursing assessment with vital signs I have seen patient Michel Bishop on 08/23/16. My clinical findings support the need for the requested home health care services because: Ltd mobility - disease progression Deconditioned w/ increased weakness Med compliance is questionable Infection w/ risk of complications I certify that my clinical findings support that this patient is homebound because: Unsafe to leave home unassisted Unable to use public transportation Stool culture for c diff Straight cath education CBC with diff tomorrow or sunday, Send to Shira Pablo August 23, 2016 14:06
--- NOTE | 2016-08-27 17:19 | HHI.DS ---
Discharge Summary Admission Date August 20, 2016 at 00:50 Discharge Date: August 22, 2016 Admitting Diagnosis sepsis, UTI, outpatient treatment failure (1) Sepsis ICD Code: A41.9 (2) UTI (urinary tract infection) ICD Code: N39.0 (3) Failure of outpatient treatment ICD Code: Z78.9 (4) Renal insufficiency ICD Code: N28.9 (5) COPD (chronic obstructive pulmonary disease) ICD Code: J44.9 (6) Thrombocytopenia ICD Code: D69.6 Procedures no invasive procedures. Brief History - From Admission This is a 76-year-old male with a PMH of HTN, COPD, Pulmonary Fibrosis on Steroid Taper, CKD and Recurrent UTI who presented to the ER w/ complaints of fever, chills and generalized weakness starting earlier tonight. Recently diagnosed w/ UTI and started on Keflex PO 2 days ago, reports compliance w/ antibiotic regimen. Today, had acute onset of fever, chills. On arrival, BP 197/96, HR 121, O2 sat 95% on RA, Temp 102.4 rectal. WBC 14.1. Platelets 108, previously 85 on 01/06/16. Creatinine 1.77, previously 1.68 on 01/04/16. UA positive for UTI. CXR was stable fibrosis, no acute changes. S/p Blood/Urine Cultures, Vanc/Zosyn in ER. Imaging Last Impressions Abdomen X-Ray 08/20/16 0000 Signed Impressions: Service Date/Time: Saturday, August 20, 2016 22:40 - CONCLUSION: 1. No evidence of bowel obstruction or ileus. 2. Degenerative changes within the lumbar spine. Vlad Dozier MD Chest X-Ray 08/19/16 2346 Signed Impressions: Service Date/Time: Saturday, August 20, 2016 00:25 - CONCLUSION: 1. Relatively stable appearance of basilar lung fibrotic changes since 2012. Cardiomegaly. No acute findings. Monty Wang MD PE at Discharge GENERAL: patient sitting up in chair. Appears comfortable. Alert and oriented 3. SKIN: Warm and dry. HEAD: Normocephalic. EYES: No scleral icterus. No injection or drainage. NECK: Supple, trachea midline. No JVD. CARDIOVASCULAR: Regular rate and rhythm without murmurs, gallops, or rubs. RESPIRATORY: Breath sounds equal bilaterally. No accessory muscle use. GASTROINTESTINAL: Abdomen soft, non-tender, nondistended. MUSCULOSKELETAL: No cyanosis, or edema. BACK: Nontender without obvious deformity. No CVA tenderness. Pt update on day of discharge patient says he is feeling well. Would like to go home. Hospital Course 76-year-old male with past medical history significant for stage IV chronic kidney disease, hypertension, urinary retention, COPD and pulmonary fibrosis presents with sepsis from UTI. Patient took 4 days of Keflex and failed outpatient therapy. On admission he was febrile to 102.4 and had a leukocytosis of 14.1. History with broad-spectrum antibiotics. Urinalysis positive for infection, grew out Escherichia coli pansensitive. Was discharged home on antibiotics to complete treatment course. for problem-based summary from most recent progress note, please see below. Sepsis, Likely secondary to urinary tract infection with Ecoli, Resolved Urine culture growing Gram negative rods D/C cefepime and vancomycin as patient failed Keflex 4 days, Discharged with Cipro 500mg BID for 12 more days Blood cultures no growth 3 days UTI, r/t Ecoli, Likely secondary to patient's self catheterizing at home Failed outpatient therapy as above Antibiotics as above Acute kidney injury on chronic Stage IV kidney disease, resolved Creatinine 1.77, previously 1.68 on 01/06/16 Improving creatine 1.49, cont to trend COPD and pulmonary fibrosis Continue home prednisone therapy Thrombocytopenia, acute on chronic, likely dilutional Platelets 108, previously 85 on 01/06/16. 08/21 decreased to 64, 08/22 remained stable. Patient follows with dr. joaquin outpatient DVT prophylaxis SCDs/teds Pharmacologic anticoagulation not indicated given thrombocytopenia Discharge patient to home Condition on discharge: Stable Heart Health Diet as tolerated Ad Layla activity Rx written: Cipro 500mg BID 12 days Follow-up with primary care physician in 2-3 days, follow up with Dr. Joaquin in 2- 3 days CBC with diff in 2 days Discussed with patient regarding medications, follow up and lab in 2 days, patient verbalized understanding. CBC results will be sent to Dr. Joaquin. Patient is stable for discharge. Pt Condition on Discharge: Stable Discharge Disposition: Discharge Home Discharge Time: <= 30 minutes Discharge Instructions DIET: Follow Instructions for: Heart Healthy Diet Activities you can perform: Regular-No Restrictions Follow up Referrals: Appointment for Follow Up - 2-3 Days with Josh Joaquin MD PCP Follow-up - 2-3 Days New Orders: CBC WITH DIFF - 2 Days New Medications: Ciprofloxacin (Cipro) 250 Mg Tab 500 MG PO BID Infection #24 Ref 0 TAB Continued Medications: Amlodipine (Norvasc) 10 Mg Tab 10 MG PO DAILY Blood Pressure Management #[address] (Dulcolax DR) 5 Mg Tabdr 5 MG PO DAILY PRN CONSTIPATION #30 Ref 0 TAB Cholecalciferol (Vitamin D) 1,000 Unit Tab 1000 UNITS PO DAILY Nutritional Supplement #1 Ref 0 BOTTLE Cobalamine Combinations (B-12 1000) 1,000-400 Mcg Subl 1 TAB PO DAILY Nutritional Supplement Ref 0 TAB.SL Coenzyme Q10 (Ubidecarenone) (Co Q 10) 10 Mg Cap 200 MG PO DAILY Cranberry (Vaccinium Macrocarpon) (Cranberry) 500 Mg Cap 1 TAB PO DAILY Isosorbide Mononitrate (Isosorbide Mononitrate) 20 Mg Tab 30 MG PO DAILY Take 2 doses 7 hours apart. Prevent Chest Pain #60 Ref 0 TAB Multiple Vitamins W/ Minerals (Centrum Silver) 1 Chw Chw 1 TAB PO DAILY Prednisolone (Millipred) 5 Mg Tab 30 MG PO DAILY #21 Sodium Bicarbonate (Sodium Bicarbonate) 650 Mg Tab 1300 MG PO BIDPC #60 Ref 0 TAB Spironolactone (Spironolactone) 25 Mg Tab 25 MG PO DAILY #30 Ref 0 TAB Discontinued Medications: Cephalexin (Keflex) 250 Mg Cap 500 MG PO BID Infection Ref 0 CAP Nabor Mai MD Aug 27, 2016 17:19
== END 2016-08-22 15:18 | disposition home or self-care (01) | DRG 698 ==
LOC: NEPE 23:05 → NEDA 08-20 00:50 → N04B 08-20 02:57
PROVIDERS: ADMIT Internal Medicine; ATTEND Internal Medicine
DX: T83.518A Infection and inflammatory reaction due to other urinary catheter, initial encounter (principal); A41.9 Sepsis, unspecified organism; N18.4 Chronic kidney disease, stage 4 (severe); N17.9 Acute kidney failure, unspecified; N39.0 Urinary tract infection, site not specified; B96.20 Unspecified Escherichia coli [E. coli] as the cause of diseases classified elsewhere; I12.9 Hypertensive chronic kidney disease with stage 1 through stage 4 chronic kidney disease, or unspecified chronic kidney disease; R33.9 Retention of urine, unspecified; J84.10 Pulmonary fibrosis, unspecified; J44.9 Chronic obstructive pulmonary disease, unspecified
CPT/HCPCS: 71010; 74000; 80048; 80053; 81001; 83605; 85007; 85027; 85049; 87040; 87077; 87086; 87186; 93005; 96361; 96365; 96375; J0692; J2543; J3370; J7030; J7040; J7050; J7510